=== PATIENT | male | born 1975 | race Caucasian/White ===

== ENCOUNTER 2017-12-02 20:50 | Emergency (ER) | payer MEDICARE, MEDICAID ==
[2017-12-02 21:04] VITALS: BP 117/72
[2017-12-02] MEDS ORDERED: MORPHINE SULFATE 10 MG/ML INJ IV ONE (22:11)
[2017-12-02] MEDS ORDERED: NORMAL SALINE 1000 ML 1,000 ML IV ONE (22:11)
[2017-12-02] MEDS ORDERED: ONDANSETRON HCL INJ/PF 4 MG/2 ML SDV IV ONE (22:11)
--- NOTE | 2017-12-02 22:14 | ER Document Report ---
ED GI/ - General Chief Complaint: Abdominal Pain Stated Complaint: ABDOMINAL PAIN Time Seen by Provider: 12/02/17 22:06 Notes: Patient is a 42-year-old male that comes to the emergency department for chief complaint of left-sided abdominal pain, pain started yesterday but has worsened , he has had several loose stools, nonbloody, he denies nausea vomiting, fever or chills. He denies history of the same. He has had a history of peptic ulcers, takes Prilosec, he has had an endoscopy in the past that showed ulcers but no other abnormality. He denies any surgeries or medical history otherwise. Denies smoking, alcohol, recreational drugs. TRAVEL OUTSIDE OF THE [place] IN LAST 30 DAYS: No - Related Data Allergies/Adverse Reactions: Penicillins Adverse Reaction (Verified 12/02/17 22:30) Past Medical History - General Information source: Patient - Social History Smoking Status: Never Smoker Frequency of alcohol use: None Lives with: Family Family History: Reviewed & Not Pertinent - Medical History Medical History: Negative Surgical Hx: Negative - Immunizations Immunizations up to date: Yes Hx Diphtheria, Pertussis, Tetanus Vaccination: Yes Review of Systems - Review of Systems Constitutional: No symptoms reported EENT: No symptoms reported Cardiovascular: No symptoms reported Respiratory: No symptoms reported Gastrointestinal: See HPI Genitourinary: No symptoms reported Male Genitourinary: No symptoms reported Musculoskeletal: No symptoms reported Skin: No symptoms reported Hematologic/Lymphatic: No symptoms reported Neurological/Psychological: No symptoms reported Physical Exam - Vital signs Vitals: Temp Pulse Resp BP Pulse Ox 97.9 F 83 20 117/72 98 12/02/17 21:01 12/02/17 21:01 12/02/17 21:01 12/02/17 21:01 12/02/17 21:01 - Notes Notes: GENERAL: Alert, interacts well. No acute distress. HEAD: Normocephalic, atraumatic. EYES: Pupils equal, round, and reactive to light. Extraocular movements intact. ENT: Oral mucosa moist, tongue midline. NECK: Full range of motion. Supple. Trachea midline. LUNGS: Clear to auscultation bilaterally, no wheezes, rales, or rhonchi. No respiratory distress. HEART: Regular rate and rhythm. No murmur ABDOMEN: Abdomen specifically tender with wincing in the left mid to lower abdomen. Remaining abdomen is soft and benign. Non-distended. Bowel sounds present in all 4 quadrants. EXTREMITIES: Moves all 4 extremities spontaneously. No edema, normal radial and dorsalis pedis pulses bilaterally. No cyanosis. BACK: no cervical, thoracic, lumbar midline tenderness. No saddle anesthesia, normal distal neurovascular exam. NEUROLOGICAL: Alert and oriented x3. Normal speech. [cranial nerves II through XII grossly intact]. PSYCH: Normal affect, normal mood. SKIN: Warm, dry, normal turgor. No rashes or lesions noted. Course - Re-evaluation Re-evalutation: Patient has left lower quadrant tenderness on exam. This is reproducible. Remaining abdomen is completely benign. No CVA tenderness. CBC, chemistry, lipase unremarkable. No blood in the urine, no urinary tract infection. No vomiting, no fever, some loose stools which are nonbloody. Discussed with patient. Discussed that this appears to be most likely be colon in nature based on location and his workup, low suspicion of abscess or perforation, low suspicion of acute abdomen. Discussion was made for either CAT scan to evaluate for colitis or other etiology versus treat for possible colitis. Patient prefers to treat for possible colitis and defers CAT scan. This was provided, discussed follow-up, recommendations, and return precautions in detail. Patient states satisfaction and agreement. - Vital Signs Vital signs: Temp Pulse Resp BP Pulse Ox 97.9 F 83 20 117/72 98 12/02/17 21:01 12/02/17 21:01 12/02/17 21:01 12/02/17 21:01 12/02/17 21:01 - Laboratory Result Diagrams: 12/02/17 22:35 12/02/17 22:35 Laboratory results interpreted by me: 12/02/17 12/02/17 12/02/17 22:35 22:35 23:05 RDW 15.0 H Total Protein 5.5 L Albumin 3.4 L Urine Urobilinogen 2.0 H Discharge - Discharge Clinical Impression: Left lower quadrant pain Condition: Stable Disposition: HOME, SELF-CARE Additional Instructions: Your examination and evaluation are most suggestive of the colon as the source of your pain. Because of the amount of pain I suspect you have colitis, we are treating you for this with antibiotics, you can take the medication that we prescribed to take home as well for pain if needed, take Tylenol or ibuprofen for pain otherwise. Start with clear fluids especially for the first 1-2 days, slowly progress diet. Follow-up with primary care for additional evaluation and treatment, you may need a colonoscopy in the near future for further evaluation. Return if you worsen including vomiting, severe pain, fever 100.4 or greater, bloody stools, swelling of the abdomen, or any other concerning or worsening symptoms. Prescriptions: Ciprofloxacin HCl [Cipro 500 mg Tablet] 500 mg PO BID #14 tablet Metronidazole [Flagyl 500 mg Tablet] 500 mg PO TID #21 tablet Forms: Return to School
[2017-12-02] MEDS ORDERED: KETOROLAC TROMETHAMINE INJ/PF 30 MG/1 ML SDV IV ONE (22:34)
[2017-12-02 23:02] LABS: ABSOLUTE BASOPHILS # (AUTO) 0.1 10^3/uL (0.0-0.2); ABSOLUTE EOSINOPHILS # (AUTO) 0.4 10^3/uL (0.0-0.6); ABSOLUTE LYMPHOCYTES (AUTO) 3.1 10^3/uL (0.5-4.7); ABSOLUTE MONOCYTES (AUTO) 0.5 10^3/uL (0.1-1.4); BASOPHILS % (AUTO) 0.9 % (0-2); EOSINOPHILS % (AUTO) 5.8 % (0-6); HEMATOCRIT 40.8 % (37.9-51.0); LYMPHOCYTES % (AUTO) 43.5 % (13-45); MEAN CORPUSCULAR HEMOGLOBIN 30.2 pg (27.0-33.4); MEAN CORPUSCULAR HGB CONC 34.3 g/dL (32.0-36.0); MEAN CORPUSCULAR VOLUME 88 fl (80-97); MONOCYTES % (AUTO) 7.5 % (3-13); PLATELET COUNT 179 10^3/uL (150-450); RED BLOOD COUNT 4.63 10^6/uL (4.35-5.55); SEGMENTED NEUTROPHILS % (AUTO) 42.3 % (42-78); TOTAL CELLS COUNTED % (AUTO) 100 %; WHITE BLOOD COUNT 7.1 10^3/uL (4.0-10.5)
[2017-12-02 23:04] LABS: ALANINE AMINOTRANSFERASE 29 U/L (21-72); ALBUMIN 3.4 g/dL (3.5-5.0); ALKALINE PHOSPHATASE 47 U/L (38-126); ANION GAP 9 (5-19); ASPARTATE AMINO TRANSFERASE 17 U/L (17-59); BILIRUBIN,DIRECT 0.2 mg/dL (0.0-0.4); BILIRUBIN,TOTAL 0.2 mg/dL (0.2-1.3); BLOOD UREA NITROGEN 16 mg/dL (7-20); CALCIUM 8.9 mg/dL (8.4-10.2); CARBON DIOXIDE 26 mmol/L (22-30); CHLORIDE 105 mmol/L (98-107); GLUCOSE 92 mg/dL (75-110); LIPASE 112.2 U/L (23-300); POTASSIUM 4.1 mmol/L (3.6-5.0); SODIUM 140.1 mmol/L (137-145); TOTAL PROTEIN 5.5 g/dL (6.3-8.2)
[2017-12-02 23:59] LABS: APPEARANCE,URINE CLEAR; BILIRUBIN,URINE NEGATIVE (NEGATIVE); COLOR,URINE YELLOW; GLUCOSE, URINE NEGATIVE (NEGATIVE); KETONES,URINE NEGATIVE (NEGATIVE); LEUKOCYTE ESTERASE,URINE NEGATIVE (NEGATIVE); NITRITE,URINE NEGATIVE (NEGATIVE); PROTEIN,URINE NEGATIVE (NEGATIVE); URINE SPECIFIC GRAVITY 1.021
[2017-12-03] MEDS ORDERED: HYDROCODONE/ACETAMINOPHEN 5-325 MG (6 TAB/ER DISP) PO PRN (00:11)
[2017-12-03] MEDS ORDERED: METRONIDAZOLE 500 MG TABLET PO ONE (00:11)
[2017-12-03] MEDS ORDERED: CIPROFLOXACIN HCL 500 MG TABLET PO ONE (00:11)
== END 2017-12-03 08:28 | disposition home or self-care (01) ==
LOC: ER 20:50
DX: R10.32 Left lower quadrant pain (principal); Z88.0 Allergy status to penicillin
CPT/HCPCS: 99284; 96361; 96374; 96375; 36415; 83690; 85025; 80053; 81001; A9270 ×3; J1885; J2405; J7030; J2270

== ENCOUNTER 2017-12-08 15:13 | Emergency (ER) | payer MEDICARE, MEDICAID ==
[2017-12-08 16:07] LABS: APPEARANCE,URINE SLIGHTLY-CLOUDY; BILIRUBIN,URINE NEGATIVE (NEGATIVE); COLOR,URINE YELLOW; GLUCOSE, URINE NEGATIVE (NEGATIVE); KETONES,URINE NEGATIVE (NEGATIVE); LEUKOCYTE ESTERASE,URINE NEGATIVE (NEGATIVE); NITRITE,URINE NEGATIVE (NEGATIVE); PROTEIN,URINE NEGATIVE (NEGATIVE); URINE SPECIFIC GRAVITY 1.016; UROBILINOGEN,URINE NEGATIVE mg/dL (<2.0)
[2017-12-08] MEDS ORDERED: RINGERS SOLUTION,LACTATED 1,000 ML IV ONE (16:16)
[2017-12-08] MEDS ORDERED: MORPHINE SULFATE 10 MG/ML INJ IV ONE (16:17)
[2017-12-08] MEDS ORDERED: ONDANSETRON HCL INJ/PF 4 MG/2 ML SDV IV ONE (16:17)
--- NOTE | 2017-12-08 16:18 | ER Document Report ---
ED Medical Screen (RME) - General Chief Complaint: Abdominal Pain Stated Complaint: ABDOMINAL PAIN Time Seen by Provider: 12/08/17 16:16 Mode of Arrival: Ambulatory Information source: Patient Notes: This is a 42-year-old man with a history of bleeding ulcers, colitis, presents to the emergency room with worsening left lower quadrant pain and bloody stools. She was recently placed on Cipro and Flagyl and states he initially felt better and then now feels worse. TRAVEL OUTSIDE OF THE [place] IN LAST 30 DAYS: No - Related Data Allergies/Adverse Reactions: Penicillins Adverse Reaction (Verified 12/08/17 15:13) Past Medical History - Social History Chew tobacco use (# tins/day): No Frequency of alcohol use: None Drug Abuse: None Renal/ Medical History: Denies: Hx Peritoneal Dialysis - Immunizations Immunizations up to date: Yes Hx Diphtheria, Pertussis, Tetanus Vaccination: Yes Physical Exam - Vital signs Vitals: Temp Pulse Resp BP Pulse Ox 97.7 F 86 18 120/69 97 12/08/17 15:23 12/08/17 15:23 12/08/17 15:23 12/08/17 15:23 12/08/17 15:23 Course - Vital Signs Vital signs: Temp Pulse Resp BP Pulse Ox 97.7 F 86 18 120/69 97 12/08/17 15:23 12/08/17 15:23 12/08/17 15:23 12/08/17 15:23 12/08/17 15:23
--- NOTE | 2017-12-08 16:48 | ER Document Report ---
ED General - General Chief Complaint: Abdominal Pain Stated Complaint: ABDOMINAL PAIN Time Seen by Provider: 12/08/17 16:16 Mode of Arrival: Ambulatory TRAVEL OUTSIDE OF THE [place] IN LAST 30 DAYS: No - HPI Notes: Patient is a 42-year-old male with a history of peptic ulcer disease who presents to the ED of continued watery diarrhea since his last visit. Patient states that he is on day 7 of 4-5 episodes of watery diarrhea with 3 episodes over the last few days containing small bloody streaks. Patient was evaluated about 6 days ago and was started empirically on Flagyl and Cipro which has not been helping with his symptoms per patient. Patient states that he is still able to eat and drink, but does have a decreased p.o. intake with associated mild nausea, no vomiting. He is urinating normally. He denies any distance travel recently or travel outside of the country. He has not noticed any changes in the type of fluid/solid p.o. intake. No other recent antibiotic use aside from what he is on currently. Denies any other significant past medical history. Denies any IV drug use or excessive alcohol involvement. Denies any headache, fever, neck pain, URI, sore throat, chest pain, palpitations, syncope , cough, shortness of breath, wheeze, dyspnea, vomiting, urinary retention, dysuria, hematuria, back pain, loss of control of bowel or bladder, or rash. - Related Data Allergies/Adverse Reactions: Penicillins Adverse Reaction (Verified 12/08/17 15:13) Past Medical History - General Information source: Patient - Social History Smoking Status: Current Every Day Smoker Chew tobacco use (# tins/day): No Frequency of alcohol use: None Drug Abuse: None Family History: Reviewed & Not Pertinent Patient has suicidal ideation: No Patient has homicidal ideation: No Renal/ Medical History: Denies: Hx Peritoneal Dialysis - Immunizations Immunizations up to date: Yes Hx Diphtheria, Pertussis, Tetanus Vaccination: Yes Review of Systems - Review of Systems -: Yes All other systems reviewed and negative Physical Exam - Vital signs Vitals: Temp Pulse Resp BP Pulse Ox 97.7 F 86 18 120/69 97 12/08/17 15:23 12/08/17 15:23 12/08/17 15:23 12/08/17 15:23 12/08/17 15:23 - Notes Notes: PHYSICAL EXAMINATION: GENERAL: Well-appearing, well-nourished and in no acute distress. HEAD: Atraumatic, normocephalic. EYES: Pupils equal round and reactive to light, extraocular movements intact, sclera anicteric, conjunctiva are normal. ENT: Nares patent and without discharge. oropharynx clear without exudates. No tonsilar hypertrophy or erythema. Moist mucous membranes. NECK: Normal range of motion, supple without lymphadenopathy LUNGS: Breath sounds clear to auscultation bilaterally and equal. No wheezes rales or rhonchi. HEART: Regular rate and rhythm without murmurs, rubs, gallops. ABDOMEN: Soft, nondistended abdomen. No guarding, no rebound. No masses appreciated. Normal bowel sounds present. No CVA tenderness bilaterally. + LLQ tenderness, mild. No tenderness at [place]. Singh negative. Musculoskeletal: FROM to passive/active. Strength 5+/5. Extremities: No cyanosis, clubbing, or edema b/l. Peripheral pulses 2+. Capillary refill less than 3 seconds. NEUROLOGICAL: Normal speech, normal gait. PSYCH: Normal mood, normal affect. SKIN: Warm, Dry, normal turgor, no rashes or lesions noted. Course - Re-evaluation Re-evalutation: 12/08/17 18:[address] Rosenberg who is in agreement with dispo/plan: Patient is an afebrile, well-hydrated, 42-year-old male who presents to the ED with abdominal pain unspecified and acute gastroenteritis. Vitals are acceptable without any significant tachycardia, tachypnea, or hypoxia. PE is otherwise unremarkable. CBC, CMP, urinalysis, CT scan of the abdomen and pelvis was unremarkable for any acute pathology. Stool testing is pending. Patient is tolerating p.o. without difficulties and is nontoxic-appearing. Nausea and and pain medication was provided today as well as fluids. No other labs or imaging warranted at this time based on H&P. Low suspicion/risk for acute appendicitis, bowel obstruction, acute cholecystitis, perforated diverticulitis, incarcerated hernia, pancreatitis, perforated ulcer, peritonitis , sepsis, testicular torsion, or other systemic emergent condition at this time. Patient is aware that his condition can change from initial presentation and he needs to monitor symptoms closely and seek medical attention if any acute changes. I will send him home with a prescription for Imodium as well as Zofran. He may finish his antibiotics. Conservative measures otherwise for symptoms. Recheck with PCM in 2-3 days. 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 Return to the ED with any worsening/concerning symptoms otherwise as reviewed in discharge. Patient is in agreement. - Vital Signs Vital signs: Temp Pulse Resp BP Pulse Ox 97.7 F 86 18 120/69 97 12/08/17 15:23 12/08/17 15:23 12/08/17 15:23 12/08/17 15:23 12/08/17 15:23 - Laboratory Result Diagrams: 12/08/17 16:42 12/08/17 16:42 Laboratory results interpreted by me: 12/08/17 16:42 RDW 14.8 H Discharge - Discharge Clinical Impression: Acute gastroenteritis, Lower abdominal pain, unspecified Condition: Stable Disposition: HOME, SELF-CARE Instructions: Abdominal Pain ([facility]), Antinausea Medication ([facility]), Gastroenteritis (adult) ([facility]) Additional Instructions: Maintain adequate fluid and food intake [place] diet ([employer] Bananas, rice, apples, toast, etc Zofran as needed tylenol if needed Monitor for any worsening symptoms Make sure you are staying hydrated enough to urinate and have normal BM's Recheck with your PCM in 2-3 days Consider colonoscopy Consider consult with Gastroenterology for ongoing/worsening symptoms Return to the ED with any worsening symptoms and/or development of fever, headache, chest pain, palpitations, syncope, shortness of breath, trouble breathing, abdominal pain, n/v/d, blood in stool/urine, weakness, or other worsening symptoms that are concerning to you. Prescriptions: Loperamide HCl [Imodium 2 mg Capsule] 2 mg PO PRN PRN #21 cap PRN Reason: Ondansetron [Zofran Odt 4 mg Tablet] 1 - 2 tab PO Q4H PRN #15 tab.rapdis PRN Reason: For Nausea/Vomiting Forms: Smoking Cessation Education, Follow-Up Laboratory Testing Referrals: CHELY HDZ MD [ACTIVE STAFF] - Follow up as needed DONALDO BEDOYA MD [ACTIVE STAFF] - Follow up as needed
[2017-12-08 17:10] LABS: ABSOLUTE BASOPHILS # (AUTO) 0.1 10^3/uL (0.0-0.2); ABSOLUTE EOSINOPHILS # (AUTO) 0.4 10^3/uL (0.0-0.6); ABSOLUTE LYMPHOCYTES (AUTO) 2.7 10^3/uL (0.5-4.7); ABSOLUTE MONOCYTES (AUTO) 0.6 10^3/uL (0.1-1.4); ABSOLUTE NEUT (AUTO) 4.1 10^3/uL (1.7-8.2); BASOPHILS % (AUTO) 0.9 % (0-2); EOSINOPHILS % (AUTO) 4.8 % (0-6); HEMATOCRIT 44.4 % (37.9-51.0); LYMPHOCYTES % (AUTO) 34.6 % (13-45); MEAN CORPUSCULAR HEMOGLOBIN 29.6 pg (27.0-33.4); MEAN CORPUSCULAR HGB CONC 33.7 g/dL (32.0-36.0); MEAN CORPUSCULAR VOLUME 88 fl (80-97); MONOCYTES % (AUTO) 7.1 % (3-13); PLATELET COUNT 199 10^3/uL (150-450); RED BLOOD COUNT 5.06 10^6/uL (4.35-5.55); RED CELL DISTRIBUTION WIDTH 14.8 % (11.5-14.0); SEGMENTED NEUTROPHILS % (AUTO) 52.6 % (42-78); TOTAL CELLS COUNTED % (AUTO) 100 %; WHITE BLOOD COUNT 7.7 10^3/uL (4.0-10.5)
[2017-12-08] MEDS ORDERED: HYDROCODONE/ACETAMINOPHEN 7.5-325 MG TABLET PO ONE (17:17)
[2017-12-08 17:20] LABS: ALANINE AMINOTRANSFERASE 33 U/L (21-72); ALBUMIN 3.9 g/dL (3.5-5.0); ALKALINE PHOSPHATASE 44 U/L (38-126); ANION GAP 10 (5-19); ASPARTATE AMINO TRANSFERASE 19 U/L (17-59); BILIRUBIN,DIRECT 0.2 mg/dL (0.0-0.4); BILIRUBIN,TOTAL 0.2 mg/dL (0.2-1.3); BLOOD UREA NITROGEN 16 mg/dL (7-20); CALCIUM 9.3 mg/dL (8.4-10.2); CARBON DIOXIDE 24 mmol/L (22-30); CHLORIDE 106 mmol/L (98-107); GLUCOSE 90 mg/dL (75-110); POTASSIUM 4.4 mmol/L (3.6-5.0); SODIUM 140.3 mmol/L (137-145); TOTAL PROTEIN 6.3 g/dL (6.3-8.2)
--- NOTE | 2017-12-08 18:28 | RADIOLOGY REPORT (SQ) ---
EXAM DESCRIPTION: CT ABD/PELVIS WITH IV ONLY COMPLETED DATE/TIME: 12/08/2017 6:09 pm REASON FOR STUDY: LLQ pain COMPARISON: None. TECHNIQUE: CT scan of the abdomen and pelvis performed using helical scanning technique with dynamic intravenous contrast injection. No oral contrast. Images reviewed with lung, soft tissue, and bone windows. Reconstructed coronal and sagittal MPR images reviewed. Delayed images for evaluation of the urinary system also acquired. All images stored on PACS. All CT scanners at this facility use dose modulation, iterative reconstruction, and/or weight based d osing when appropriate to reduce radiation dose to as low as reasonably achievable (ALARA). [facility]: Dose Right [facility]: CareDose [facility]: Dose Right [facility]: Teradose 4D [facility]: [employer] CONTRAST TYPE AND DOSE: contrast/concentration: Isovue 350.00 mg/ml; Total Contrast Delivered: 95.0 ml; Total Saline Delivered: 50.0 ml RENAL FUNCTION: None required. The patient is less than 50 years old. RADIATION DOSE: CT Rad equipment meets quality standard of care and radiation dose reduction techniq ues were employed. CTDIvol: 7.4 - 10.3 mGy. DLP: 1026 mGy-cm.. LIMITATIONS: None. FINDINGS: LOWER CHEST: Minimal bibasilar densities are identified most consistent with atelectatic c hanges. LIVER: Normal size. No masses. No dilated ducts. SPLEEN: Normal size. No focal lesions. PANCREAS: No masses. No significant calcifications. No adjacent inflammation or peripancreatic fluid collections. Pancreatic duct not dilated. GALLBLADDER: No identified stones by CT criteria. No inflammatory changes to suggest cholecystitis. ADRENAL GLANDS: No significant masses or asymmetry. RIGHT KIDNEY AND URETER: No solid masses. No significant calcifications. No hydronephrosis or hyd roureter. LEFT KIDNEY AND URETER: No solid masses. No significant calcifications. No hydronephrosis or hydr oureter. AORTA AND VESSELS: No aneurysm. No dissection. Renal arteries, SMA, celiac without stenosis. RETROPERITONEUM: No retroperitoneal adenopathy, hemorrhage or masses. BOWEL AND PERITONEAL CAVITY: No masses or inflammatory changes. No free fluid or peritoneal masses. APPENDIX: Normal. PELVIS: No mass. No free fluid. Normal bladder. ABDOMINAL WALL: No masses. No hernias. BONES: No significant or acute findings. OTHER: No other significant finding. IMPRESSION: NO SIGNIFICANT OR ACUTE FINDING IN THE ABDOMEN OR PELVIS ON CT SCAN WITH IV CONTRAST. TECHNICAL DOCUMENTATION: JOB ID: [id number] Quality ID # [id number]: Final reports with documentation of one or more dose reduction techniques (e.g., Au tomated exposure control, adjustment of the mA and/or kV according to patient size, use of iterative reconstruction technique) 2010 [employer]- All Rights Reserved Reading location - IP/workstation name: [email or web address]
[2017-12-08 19:17] VITALS: BP 116/78
== END 2017-12-08 19:17 | disposition home or self-care (01) ==
LOC: ER 15:13
DX: K52.9 Noninfective gastroenteritis and colitis, unspecified (principal); R10.30 Lower abdominal pain, unspecified; Z88.0 Allergy status to penicillin
CPT/HCPCS: 99284; 96361; 96374; 96375; 36415; 87045; 87205; 85025; 80053; 81001; 74177; J2270; J2405; J7120; A9270

== ENCOUNTER 2018-01-16 12:42 | Emergency (ER) | payer OTHER, MEDICARE, MEDICAID ==
[2018-01-16] MEDS ORDERED: KETOROLAC TROMETHAMINE 60 MG/2 ML SDV IM ONE (14:30)
[2018-01-16] MEDS ORDERED: OXYCODONE-ACETAMINOPHEN 5-325 MG TABLET PO ONE (14:30)
--- NOTE | 2018-01-16 14:32 | ER Document Report ---
HPI - HPI Patient complains to provider of: Low back pain Onset: Other - 2 days ago Onset/Duration: Persistent Quality of pain: Sharp Pain Level: 5 Context: Patient states that he was attempting to lift a stump 2 days ago and felt a crack in his lower back. Patient went to the hospital at [facility] and was evaluated in the emergency department. Patient states that he had x-rays performed and was told he had a mild fracture as well as a sprain and that he was given a short course of pain medication and only a few days off from his job. Patient complains of continued pain and is needing an additional work excuse. Patient denies any new injury. Patient denies any radiculopathy or paresthesia. Patient denies any urinary symptoms. Associated Symptoms: Other - Low back pain Exacerbated by: Movement Relieved by: Denies Similar symptoms previously: No Recently seen / treated by doctor: Yes - ROS ROS below otherwise negative: Yes Systems Reviewed and Negative: Yes All other systems reviewed and negative - CONSTITUTIONAL Constitutional: DENIES: Fever - NEURO Neurology: DENIES: Weakness - GASTROINTESTINAL Gastrointestinal: DENIES: Abdominal Pain - MUSCULOSKELETAL Musculoskeletal: REPORTS: Back Pain. DENIES: Extremity pain - DERM Skin Color: Normal Skin Problems: None Past Medical History - General Information source: Patient - Social History Smoking Status: Current Every Day Smoker Smoking Education Provided: Yes Frequency of alcohol use: None Drug Abuse: None Occupation: construction Lives with: Family Family History: Reviewed & Not Pertinent - Medical History Medical History: Negative Renal/ Medical History: Denies: Hx Peritoneal Dialysis Surgical Hx: Negative - Immunizations Immunizations up to date: Yes Hx Diphtheria, Pertussis, Tetanus Vaccination: Yes Vertical Provider Document - CONSTITUTIONAL Agree With Documented VS: Yes Exam Limitations: No Limitations General Appearance: WD/WN, No Apparent Distress Notes: PHYSICAL EXAMINATION: GENERAL: Well-appearing, well-nourished and in no acute distress. HEAD: Atraumatic, normocephalic. EYES: sclera clear, anicteric, conjunctiva are normal. ENT: nares patent, Moist mucous membranes. NECK: Normal range of motion, supple no lymphadenopathy LUNGS: respirations unlabored HEART: Regular rate and rhythm without murmurs EXTREMITIES: Normal range of motion, no pitting or edema. No cyanosis. Gait normal, pt ambulates without difficulty BACK: Lower lumbar midline tenderness, lumbar paraspinal tenderness no deformities or step-offs. No CVA tenderness. NEUROLOGICAL: Cranial nerves grossly intact. Normal speech, normal gait. No saddle anesthesia. No foot drop, negative straight leg test bilaterally PSYCH: Normal mood, normal affect. SKIN: Warm, Dry, normal turgor, no rashes or lesions noted. - INFECTION CONTROL TRAVEL OUTSIDE OF THE [place] IN LAST 30 DAYS: No Course - Re-evaluation Re-evalutation: 01/16/18 15:18 The patient presents with low back pain without signs of spinal cord compression , cauda equina syndrome, infection, aneurysm, or other serious etiology. The patient is neurologically intact. Given the extremely risk of these diagnoses further testing and evaluation for these possibilities does not appear to be indicated at this time. Patient has been instructed to return if the symptoms worsen or change in any way. 01/16/18 15:[address] Shi regarding patient's pain management. Agrees with plan for short course of narcotics at this time. - Vital Signs Vital signs: Temp Pulse Resp BP Pulse Ox 97.6 F 78 18 120/70 97 01/16/18 12:47 01/16/18 12:47 01/16/18 12:47 01/16/18 12:47 01/16/18 12:47 - Diagnostic Test Radiology reviewed: Reports reviewed Discharge - Discharge Clinical Impression: Low back pain Qualifiers: Chronicity: acute Back pain laterality: bilateral Sciatica presence: without sciatica Qualified Code(s): M54.5 - Low back pain Condition: Stable Disposition: HOME, SELF-CARE Instructions: Ice Packs ([facility]), Oral Narcotic Medication ([facility]), Low Back Pain ( [facility]) Additional Instructions: Return immediately for any new or worsening symptoms Followup with your primary care provider, call tomorrow to make a followup appointment Prescriptions: Naproxen [Naprosyn 250 Nmg Tablet] 1 tab PO BID #14 tablet Oxycodone HCl/Acetaminophen [Percocet 5-325 mg Tablet] 1 tab PO ASDIR PRN #15 tablet PRN Reason: Forms: Return to Work, Smoking Cessation Education Referrals: [facility] [Provider Group] - Follow up as needed
--- NOTE | 2018-01-16 14:58 | RADIOLOGY REPORT (SQ) ---
EXAM DESCRIPTION: CT LUMBAR SPINE WITHOUT COMPLETED DATE/TIME: 01/16/2018 2:41 pm REASON FOR STUDY: low back pain after lifting stump,felt crack COMPARISON: None. TECHNIQUE: Axial images acquired through the lumbar spine without intravenous contrast. Images revi ewed with lung, soft tissue and bone windows. Reconstructed coronal and sagittal MPR images reviewed . All images stored on PACS. All CT scanners at this facility use dose modulation, iterative reconstruction, and/or weight based d osing when appropriate to reduce radiation dose to as low as reasonably achievable (ALARA). [facility]: Dose Right [facility]: CareDose [facility]: Dose Right [facility]: Teradose 4D [facility]: [employer] RADIATION DOSE: mGy. LIMITATIONS: None. FINDINGS: SEGMENTATION: Normal. No transitional anatomy. ALIGNMENT: Normal. VERTEBRAL BODIES: No fractures. No dislocation. No acute findings. DISCS: No significant protrusions. Study limited by lack of intrathecal contrast. PEDICLES, TRANSVERSE PROCESSES: No fractures. No dislocation. No acute findings. FACETS, POSTERIOR ELEMENTS: No fractures. No dislocation. No spinal stenosis. HARDWARE: None in the spine. VISUALIZED RIBS: No fractures. SOFT TISSUES: No significant or acute finding in adjacent soft tissues. OTHER: No other significant finding. IMPRESSION: NORMAL CT OF THE LUMBAR SPINE. TECHNICAL DOCUMENTATION: JOB ID: [id number] Quality ID # [id number]: Final reports with documentation of one or more dose reduction techniques (e.g., Au tomated exposure control, adjustment of the mA and/or kV according to patient size, use of iterative reconstruction technique) 2010 [employer]- All Rights Reserved Reading location - IP/workstation name: [email or web address]
[2018-01-16] MEDS ORDERED: LIDOCAINE 5% (700 MG) TRANSDERMAL ADH..PATCH TP ONE (15:19)
[2018-01-16 16:04] VITALS: BP 120/83
== END 2018-01-16 16:04 | disposition home or self-care (01) ==
LOC: ER 12:42
DX: M54.5 Low back pain (principal); X50.0XXA Overexertion from strenuous movement or load, initial encounter; Y99.0 Civilian activity done for income or pay; F17.200 Nicotine dependence, unspecified, uncomplicated
CPT/HCPCS: 99283; 96372; 72131; J1885

== ENCOUNTER 2018-01-27 17:31 | Emergency (ER) | payer MEDICARE, MEDICAID ==
--- NOTE | 2018-01-27 18:04 | ER Document Report ---
ED Psych Disorder / Suicide - General Mode of Arrival: Ambulatory Information source: Patient TRAVEL OUTSIDE OF THE [place] IN LAST 30 DAYS: No <TERESA LISA - Last Filed: 01/27/18 19:26> <DIANDRA SALDER - Last Filed: 01/27/18 20:57> - General Chief Complaint: Suicidal Ideation Stated Complaint: PSYCH EVAL Time Seen by Provider: 01/27/18 17:54 Notes: Patient is a 42-year-old male with a history of drug abuse, alcohol abuse, alcohol withdrawals presenting to the emergency department complaining of suicidal ideation and plan. Patient states that he has been increasingly depressed the past 2 weeks due to issues with his girlfriend and states "I want to slit my throat". Patient states that he relapsed on cocaine, alcohol and marijuana after 6 months of being clean. He also states that he has not been taking his medications of Prozac, BuSpar, Trazodone due feeling like they do not work. Patient states he smoked crack cocaine this morning and consumed 1/2 a bottle of whiskey today further stating he normally drink 1/5 daily for the last 2 weeks. Patient also complains of a headache and anxiety. Patient denies any chest pain or trouble breathing. (TERESA LISA) - Related Data Allergies/Adverse Reactions: Penicillins Adverse Reaction (Verified 12/08/17 15:13) Past Medical History - General Information source: Patient - Social History Smoking Status: Current Every Day Smoker Frequency of alcohol use: Social Drug Abuse: Cocaine, Marijuana Family History: Reviewed & Not Pertinent Patient has suicidal ideation: Yes Patient has homicidal ideation: No - Immunizations Immunizations up to date: Yes Hx Diphtheria, Pertussis, Tetanus Vaccination: Yes <TERESA LISA - Last Filed: 01/27/18 19:26> Review of Systems - Review of Systems Constitutional: No symptoms reported EENT: No symptoms reported Cardiovascular: No symptoms reported Respiratory: No symptoms reported Gastrointestinal: No symptoms reported Genitourinary: No symptoms reported Male Genitourinary: No symptoms reported Musculoskeletal: No symptoms reported Skin: No symptoms reported Hematologic/Lymphatic: No symptoms reported Neurological/Psychological: See HPI, Headaches, Suicidal ideation -: Yes All other systems reviewed and negative <TERESA LISA - Last Filed: 01/27/18 19:26> Physical Exam <TERESA LISA - Last Filed: 01/27/18 19:26> <DIANDRA SADLER - Last Filed: 01/27/18 20:57> - Vital signs Vitals: Temp Pulse Resp BP Pulse Ox 98.7 F 119 H 18 125/83 97 01/27/18 17:37 01/27/18 17:37 01/27/18 17:37 01/27/18 17:37 01/27/18 17:37 - Notes Notes: GENERAL: Alert, interacts well. No acute distress. HEAD: Normocephalic, atraumatic. EYES: Pupils equal, round, and reactive to light. Extraocular movements intact. ENT: Oral mucosa moist, tongue midline. NECK: Full range of motion. Supple. Trachea midline. LUNGS: Clear to auscultation bilaterally, no wheezes, rales, or rhonchi. No respiratory distress. HEART:Tachycardic. No murmurs, gallops, or rubs. ABDOMEN: Soft, non-tender. Non-distended. Bowel sounds present in all 4 quadrants. EXTREMITIES: Moves all 4 extremities spontaneously. NEUROLOGICAL: Alert and oriented x3. Normal speech. PSYCH: Appears depressed, poor eye contact, fidgety. SKIN: Warm, dry, normal turgor. No rashes or lesions noted. No track casiano noted. (TERESA LISA) Course - Laboratory Result Diagrams: 01/27/18 18:10 01/27/18 18:10 <TERESA LISA - Last Filed: 01/27/18 19:26> - Laboratory Result Diagrams: 01/27/18 18:10 01/27/18 18:10 <DIANDRA SADLER - Last Filed: 01/27/18 20:57> - Re-evaluation Re-evalutation: 01/27/18 20:52 CBC unremarkable, CMP unremarkable, cardiac enzymes negative despite cocaine use , urinalysis unremarkable, acetaminophen and salicylates undetectable, alcohol is only 16, urine drug screen positive for benzodiazepines, cocaine and marijuana. No evidence of withdrawal at this time, no tremors. Patient is given Vistaril for sleep and for his anxiety. Patient is placed on 24-hour hold , patient will be seen by behavioral health team in the morning. He is medically cleared. (DIANDRA SADLER) - Vital Signs Vital signs: Temp Pulse Resp BP Pulse Ox 98.7 F 119 H 18 125/83 97 01/27/18 17:37 01/27/18 17:37 01/27/18 17:37 01/27/18 17:37 01/27/18 17:37 - Laboratory Laboratory results interpreted by me: 01/27/18 01/27/18 18:10 18:10 Glucose 127 H Urine Urobilinogen 2.0 H Salicylates < 1.0 L Acetaminophen < 10 L - EKG Interpretation by Me Additional EKG results interpreted by me: 01/27/18 20:56 EKG shows sinus rhythm at a rate of 89, left axis deviation, normal intervals, no ST segment elevations or depressions, no T wave inversions per my interpretation. (DIANDRA SADLER) Discharge <TERESA LISA - Last Filed: 01/27/18 19:26> <DIANDRA SADLER - Last Filed: 01/27/18 20:57> - Discharge Clinical Impression: Suicidal ideation, Polysubstance abuse Condition: Stable Disposition: PSYCH HOSP/UNIT Scribe Attestation: 01/27/18 20:57 I personally performed the services described in the documentation, reviewed and edited the documentation which was dictated to the scribe in my presence, and it accurately records my words and actions. (DIANDRA SADLER) Scribe Documentation - Scribe Written by Scribe:: Alfonso Harris, 01/27/2018 18:13 acting as scribe for :: Edmar <TERESA LISA - Last Filed: 01/27/18 19:26>
[2018-01-27 18:36] LABS: ABSOLUTE BASOPHILS # (AUTO) 0.1 10^3/uL (0.0-0.2); ABSOLUTE EOSINOPHILS # (AUTO) 0.1 10^3/uL (0.0-0.6); ABSOLUTE LYMPHOCYTES (AUTO) 1.8 10^3/uL (0.5-4.7); ABSOLUTE MONOCYTES (AUTO) 0.4 10^3/uL (0.1-1.4); ABSOLUTE NEUT (AUTO) 5.2 10^3/uL (1.7-8.2); BASOPHILS % (AUTO) 0.9 % (0-2); EOSINOPHILS % (AUTO) 0.9 % (0-6); HEMATOCRIT 46.8 % (37.9-51.0); LYMPHOCYTES % (AUTO) 24.3 % (13-45); MEAN CORPUSCULAR HEMOGLOBIN 30.3 pg (27.0-33.4); MEAN CORPUSCULAR HGB CONC 34.3 g/dL (32.0-36.0); MEAN CORPUSCULAR VOLUME 88 fl (80-97); PLATELET COUNT 224 10^3/uL (150-450); RED CELL DISTRIBUTION WIDTH 13.9 % (11.5-14.0); SEGMENTED NEUTROPHILS % (AUTO) 68.9 % (42-78); TOTAL CELLS COUNTED % (AUTO) 100 %; WHITE BLOOD COUNT 7.5 10^3/uL (4.0-10.5)
[2018-01-27 18:45] LABS: APPEARANCE,URINE SLIGHTLY-CLOUDY; BILIRUBIN,URINE NEGATIVE (NEGATIVE); COLOR,URINE YELLOW; GLUCOSE, URINE NEGATIVE (NEGATIVE); KETONES,URINE NEGATIVE (NEGATIVE); LEUKOCYTE ESTERASE,URINE NEGATIVE (NEGATIVE); NITRITE,URINE NEGATIVE (NEGATIVE); PROTEIN,URINE NEGATIVE (NEGATIVE); URINE SPECIFIC GRAVITY 1.023
[2018-01-27 18:46] LABS: ACETAMINOPHEN < 10 ug/mL (10-30); ALANINE AMINOTRANSFERASE 34 U/L (21-72); ALBUMIN 4.7 g/dL (3.5-5.0); ALCOHOL 16 mg/dL (NONE DETECTED); ALKALINE PHOSPHATASE 55 U/L (38-126); ANION GAP 14 (5-19); ASPARTATE AMINO TRANSFERASE 21 U/L (17-59); BILIRUBIN,DIRECT 0.2 mg/dL (0.0-0.4); BILIRUBIN,TOTAL 0.3 mg/dL (0.2-1.3); BLOOD UREA NITROGEN 13 mg/dL (7-20); CALCIUM 9.8 mg/dL (8.4-10.2); CARBON DIOXIDE 23 mmol/L (22-30); CHLORIDE 104 mmol/L (98-107); GLUCOSE 127 mg/dL (75-110); POTASSIUM 4.4 mmol/L (3.6-5.0); SALICYLATE < 1.0 mg/dL (2.0-20.0); SODIUM 140.8 mmol/L (137-145); TOTAL PROTEIN 7.3 g/dL (6.3-8.2)
[2018-01-27 18:59] LABS: URINE AMPHETAMINES SCREEN NEGATIVE; URINE BARBITURATES SCREEN NEGATIVE; URINE BENZODIAZEPINES SCREEN UNCONFIRMED POSITIVE; URINE COCAINE SCREEN UNCONFIRMED POSITIVE; URINE MARIJUANA (THC) SCREEN UNCONFIRMED POSITIVE; URINE METHADONE SCREEN NEGATIVE; URINE PHENCYCLIDINE SCREEN NEGATIVE
[2018-01-27] MEDS ORDERED: HYDROXYZINE HCL INJ 50 MG/1 ML VIAL IM ONE (19:50)
--- NOTE | 2018-01-27 22:33 | EKG REPORT ---
SEVERITY:- OTHERWISE NORMAL ECG - SINUS RHYTHM BORDERLINE LEFT AXIS DEVIATION : Confirmed by: Corina Martinez MD 27-Jan-2018 22:32:54
--- NOTE | 2018-01-28 09:29 | ER Document Report ---
Doctor's Note Notes: 01/28/18 09:29 42-year-old male with past medical history as recorded who presents status post suicidal ideations as well as drug and alcohol abuse. Awaiting psychiatry/ psychology evaluation. 01/28/18 15:31 Patient is more calm and cooperative at this time. Patient denies any suicidal ideations at this time. Patient states he normally drinks 1/5 of alcohol daily. They have the patient accepted at a detox center. Patient does endorse some shakes, but he is oriented x4. No history of alcohol withdrawal seizures. I will provide 2 of Ativan at this time. The psychology team states that the patient is able to be treated for detox at this facility.
[2018-01-28] MEDS ORDERED: NICOTINE 21 MG/24 HR PATCH.TD24 TD ONE (11:39)
[2018-01-28] MEDS ORDERED: LORAZEPAM 1 MG TABLET PO ONE ×2 (11:39→15:32)
[2018-01-28] MEDS ORDERED: ONDANSETRON 4 MG TAB.RAPDIS PO ONE (11:39)
--- NOTE | 2018-01-28 15:05 | PSYCHOLOGICAL NOTE ---
Psych Note - Psych Note Psych Note: Reason: Suicidal ideation Patient is a 42-year-old male with a history of drug abuse, alcohol abuse, alcohol withdrawals presenting to the emergency department complaining of suicidal ideation and plan. Patient states that he has been increasingly depressed the past 2 weeks due to issues with his girlfriend and states "I want to slit my throat". Patient refused initial attempt of evaluation stating he was sick and had no interest in speaking to clinician. Attending physician was notified by attending nurse that the patient was asking for medications. Patient was told that he needed to speak to behavioral health first. Clinician was notified the patient was ready to speak. Patient reports suicidal ideation with plan of cutting his wrists. He states he is done this in the past. He states he has a diagnosis of schizoaffective bipolar type and PTSD. He continued to report that he had a recent relapse. He disclosed he used to use methamphetamine however he has recently relapsed on cocaine and is drinking alcohol again. He states he drinks about 1/5 of whiskey a day. When asked what his triggers could possibly be he states "I do not know things not going my way." Patient reports he would be interested in detox and wants help getting back on his medications. He reports that he is originally from [place] but moved up to [place] 2 months ago to get away from the [facility]. Patient was asked again about his suicidal plan he again states that he thought about slitting his wrists. Patient was asked if he remembered what he told staff last night and he confirms he told him he was going to slit his throat however he states that he change it to his wrist because he is done his wrist before. Patient reports he needs inpatient help. He confirms he has a safe place to live on [facility]. He reports he used to see A in [place] and picks up his medications from [facility] on [address] Patient reports he feels like he is going to hurt himself or somebody else. Patient is asking for medications stating that if he could at least have his BuSpar he knows that works and will make him feel better. Behavior health contacted [facility]. Patient is prescribed diazepam 5 mg 3 times daily, Percocets 5 mg (unknown frequency). Patient has not picked up any other medications. Patient did have a prescription for BuSpar 10 mg (unknown frequency) prescribed on 12/30/2017 that he never picked up. Behavior health team contacted the [facility], there is currently no bed availability. Behavior health team contacted [facility]. They confirmed they have availability and conducted a phone interview with patient. Patient is alert and oriented to person, place, time and circumstance. Mood is irritable with congruent affect. Clinician observes patient visibly shaking patient reports nausea feeling like withdrawals from alcohol. Patient endorses passive suicidal ideation and homicidal ideation ie no plans means or intent. Delusions are absent behaviors congruent with an intact reality based presentation i.e. organized and linear thought process. Eye contact is poor. Intellectual abilities appear to be within the average range. Attention and concentration is poor. Insight, judgment, impulse control is fair as evidenced by the patient voluntarily coming to [facility] for assistance. Polysubstance abuse Impression\\plan: Patient is cleared from acute psychiatric services. Patient does not meet IVC criteria per [place] GS 122C. Patient is disclosing wanting assistance with detox. [facility] confirms a have a bed and are reviewing patient's information. Patient is recommended to follow through with this plan and received detox treatment through [facility]. Dr. Sifuentes was consulted and the care management this patient; attending physician is agreement with recommendations and disposition.
[2018-01-28 17:55] VITALS: BP 118/81
== END 2018-01-28 18:11 ==
LOC: ER 17:31
DX: R45.851 Suicidal ideations (principal); F19.10 Other psychoactive substance abuse, uncomplicated; F10.10 Alcohol abuse, uncomplicated; F17.200 Nicotine dependence, unspecified, uncomplicated
CPT/HCPCS: 93005; 99285; 96372; 36415; 80307 ×4; 85025; 80053; 81001; 84484; 93010; A9270 ×2; J3490; S0119